=== PATIENT | female | born 1985 | race Caucasian/White ===

== ENCOUNTER 2018-09-29 22:31 | Observation (INO) | payer OTHER ==
[2018-09-29] MEDS ORDERED: KETOROLAC 15 MG/1 ML SDV IM ONE (22:49)
[2018-09-29] MEDS ORDERED: KETOROLAC 30 MG/1 ML SDV ONE (22:50)
--- NOTE | 2018-09-29 22:52 | EDPHY ---
H & P Stated Complaint: cervix pain Time Seen by Provider: 09/29/18 22:42 HPI/ROS: HPI The patient presents with pelvic pain which has been present for the last 2 weeks though became worse this morning and has been persistent ever since. The pain is diffuse, sharp in nature, began to radiate toward her stomach today. She had the pain initially after masturbating 2 weeks ago though it was manageable. Her last menstrual period was on September 21 and was usual for her. She does not have any bleeding or vaginal discharge. She says she has been treating the pain with CBD oil. She has no prior history of similar pain. She has not had a fever.. REVIEW OF SYSTEMS 10 systems were reviewed and negative with the exception of the elements mentioned in the history of present illness. PMHx: Healthy, 1 in her 20s which resulted as a miscarriage at 5 months Soc Hx: No primary care doctor, recently moved from [place], drinks alcohol occasionally PHYSICAL General Appearance: Alert, no distress Eyes: Pupils equal and round no pallor or injection ENT, Mouth: Mucous membranes moist Respiratory: There are no retractions, lungs are clear to auscultation Cardiovascular: Regular rate and rhythm Gastrointestinal: Abdomen is soft and mildly tender in lower quadrants, no masses, bowel sounds normal Pelvic: Cervix appears normal though there is cervical motion tenderness present, there is a small amount of whitish discharge Neurological: A&O, moves all extremities Skin: Warm and dry, no rashes Musculoskeletal: Neck is supple non tender Extremities: symmetrical, full range of motion Psychiatric: Patient is oriented X 3, there is no agitation Source: Patient Exam Limitations: No limitations - Personal History LMP (Females 10-55): 8-14 Days Ago Current Tetanus Diphtheria and Acellular Pertussis (TDAP): Unsure - Medical/Surgical History Hx Asthma: No Hx Chronic Respiratory Disease: No Hx Diabetes: No Hx Cardiac Disease: No Hx Renal Disease: No Hx Cirrhosis: No Hx Alcoholism: No Hx HIV/AIDS: No Hx Splenectomy or Spleen Trauma: No - Social History Smoking Status: Current every day smoker Constitutional: Initial Vital Signs Temperature (C) 36.7 C 09/29/18 22:39 Heart Rate 106 H 09/29/18 22:39 Respiratory Rate 20 09/29/18 22:39 Blood Pressure 162/113 H 09/29/18 22:39 O2 Sat (%) 95 09/29/18 22:39 O2 Delivery Mode Room Air Allergies/Adverse Reactions: No Known Allergies Allergy (Unverified 09/29/18 22:38) Home Medications: Medication Instructions Recorded Acetaminophen [Tylenol ES 500 mg 1,000 mg PO Q8HRS tab 09/30/18 (*)] Ibuprofen [Motrin (*)] 600 mg PO Q6HRS tab 09/30/18 oxyCODONE IR [Oxycodone Ir (*)] 5 - 10 mg PO Q4HRS PRN #25 tab 09/30/18 Medical Decision Making - Diagnostics Imaging Results: Ultrasound pelvis demonstrates complex left adnexal mass concerning for ruptured ectopic with free fluid visualized within the abdomen, discussed with direct radiology Imaging: I viewed and interpreted images myself Differential Diagnosis: This is a 33-year-old sexually active female who presents with 2 weeks of vaginal and lower abdominal pain which became worse today, radiating upwards throughout her abdomen. On exam, she has normal vital signs, she has mild tenderness in her lower abdomen, pelvic exam demonstrates cervical motion tenderness with minimal discharge in normal appearing cervix. In the emergency department, labs were checked, qualitative HCG was positive. Pelvic ultrasound was performed demonstrating heterogeneous structure outside of the uterus, uterus is empty, there is free fluid throughout her abdomen. food science technician showed me the images. I consulted with the patient who is had sexual intercourse over the last several months. She denies any dizziness or lightheadedness. Repeat vital signs are normal. I discussed the case with the OBGYN television picture tube rebuilder Dr. Robledo. He will come and see the patient in the ER. HCG is about 300. Patient's pain is being treated with fentanyl. Differential diagnoses considered in the emergency department include ruptured ectopic, PID, tubo-ovarian abscess, fibroids. The patient was eventually seen by Dr. Ambrose who took the patient directly to the operating room. She remained hemodynamically stable throughout her time in the emergency department. She did require ongoing treatment with pain medication. - Data Points Laboratory Results: Laboratory Results 09/30/18 00:36 09/29/18 23:06 09/30/18 09/30/18 09/30/18 00:43 00:36 00:36 WBC 17.22 10^3/uL H 10^3/uL (3.80-9.50) RBC 3.94 10^6/uL L 10^6/uL (4.18-5.33) Hgb 12.0 g/dL L g/dL (12.6-16.3) POC Hgb 13.3 gm/dL gm/dL (12.6-16.3) Hct 36.2 % L % (38.0-47.0) POC Hct 39 % % (38-47) MCV 91.9 fL fL (81.5-99.8) MCH 30.5 pg pg (27.9-34.1) MCHC 33.1 g/dL g/dL (32.4-36.7) RDW 12.4 % % (11.5-15.2) Plt Count 311 10^3/uL 10^3/uL (150-400) MPV 9.3 fL fL (8.7-11.7) Neut % (Auto) 81.5 % H % (39.3-74.2) Lymph % (Auto) 12.5 % L % (15.0-45.0) [place] % (Auto) 4.4 % L % (4.5-13.0) Eos % (Auto) 0.8 % % (0.6-7.6) Baso % (Auto) 0.5 % % (0.3-1.7) Nucleat RBC Rel Count 0.0 % % (0.0-0.2) Absolute Neuts (auto) 14.03 10^3/uL H 10^3/uL (1.70-6.50) Absolute Lymphs (auto) 2.16 10^3/uL 10^3/uL (1.00-3.00) Absolute Monos (auto) 0.75 10^3/uL 10^3/uL (0.30-0.80) Absolute Eos (auto) 0.13 10^3/uL 10^3/uL (0.03-0.40) Absolute Basos (auto) 0.09 10^3/uL 10^3/uL (0.02-0.10) Absolute Nucleated RBC 0.00 10^3/uL 10^3/uL (0-0.01) Immature Gran % 0.3 % % (0.0-1.1) Immature Gran # 0.06 10^3/uL 10^3/uL (0.00-0.10) POC Sodium 135 mEq/L mEq/L (135-145) Sodium POC Potassium 3.8 mEq/L mEq/L (3.3-5.0) Potassium POC Chloride 100 mEq/L mEq/L (97-110) Chloride Carbon Dioxide Anion Gap POC BUN 16 mg/dL mg/dL (7-23) BUN Creatinine POC Creatinine 0.8 mg/dL mg/dL (0.6-1.0) Estimated GFR Glucose POC Glucose 115 mg/dL H mg/dL (70-100) Calcium Total Bilirubin Conjugated Bilirubin Unconjugated Bilirubin AST ALT Alkaline Phosphatase Total Protein Albumin Lipase Beta HCG, Qual Beta HCG, Quant Specimen Hemolysis Tanja species DNA C.trachomatis RNA (TMA) Gardnerella DNA Probe N.gonorrhoeae RNA (TMA) Trichomonas DNA Probe Patient ABO/Rh O POSITIVE 09/29/18 09/29/18 09/29/18 23:21 23:20 23:20 WBC RBC Hgb POC Hgb Hct POC Hct MCV MCH MCHC RDW Plt Count MPV Neut % (Auto) Lymph % (Auto) [place] % (Auto) Eos % (Auto) Baso % (Auto) Nucleat RBC Rel Count Absolute Neuts (auto) Absolute Lymphs (auto) Absolute Monos (auto) Absolute Eos (auto) Absolute Basos (auto) Absolute Nucleated RBC Immature Gran % Immature Gran # POC Sodium Sodium POC Potassium Potassium POC Chloride Chloride Carbon Dioxide Anion Gap POC BUN BUN Creatinine POC Creatinine Estimated GFR Glucose POC Glucose Calcium Total Bilirubin Conjugated Bilirubin Unconjugated Bilirubin AST ALT Alkaline Phosphatase Total Protein Albumin Lipase Beta HCG, Qual Beta HCG, Quant 298.77 mIU/mL H mIU/mL (0.00-4.83) Specimen Hemolysis Tanja species DNA Pending C.trachomatis RNA (TMA) Pending Gardnerella DNA Probe Pending N.gonorrhoeae RNA (TMA) Pending Trichomonas DNA Probe Pending Patient ABO/Rh 09/29/18 09/29/18 09/29/18 23:06 23:06 23:06 WBC REJ RBC REJ Hgb REJ POC Hgb Hct REJ POC Hct MCV REJ MCH REJ MCHC REJ RDW REJ Plt Count REJ MPV REJ Neut % (Auto) REJ Lymph % (Auto) REJ [place] % (Auto) REJ Eos % (Auto) REJ Baso % (Auto) REJ Nucleat RBC Rel Count REJ Absolute Neuts (auto) REJ Absolute Lymphs (auto) REJ Absolute Monos (auto) REJ Absolute Eos (auto) REJ Absolute Basos (auto) REJ Absolute Nucleated RBC REJ Immature Gran % REJ Immature Gran # REJ POC Sodium Sodium 130 mEq/L L mEq/L (135-145) POC Potassium Potassium 4.8 mEq/L mEq/L (3.5-5.2) POC Chloride Chloride 103 mEq/L mEq/L (97-110) Carbon Dioxide 19 mEq/l L mEq/l (22-31) Anion Gap 8 mEq/L mEq/L (6-14) POC BUN BUN 18 mg/dL mg/dL (7-23) Creatinine 0.7 mg/dL mg/dL (0.6-1.0) POC Creatinine Estimated GFR > 60 Glucose 100 mg/dL mg/dL (70-100) POC Glucose Calcium 8.8 mg/dL mg/dL (8.5-10.4) Total Bilirubin 0.9 mg/dL mg/dL (0.1-1.4) Conjugated Bilirubin 0.9 mg/dL H mg/dL (0.0-0.5) Unconjugated Bilirubin 0.0 mg/dL mg/dL (0.0-1.1) AST 40 IU/L IU/L (14-46) ALT 8 IU/L L IU/L (9-52) Alkaline Phosphatase 57 IU/L IU/L (38-126) Total Protein 7.4 g/dL g/dL (6.3-8.2) Albumin 4.2 g/dL g/dL (3.5-5.0) Lipase 55 IU/L IU/L (23-300) Beta HCG, Qual POSITIVE Beta HCG, Quant Specimen Hemolysis 192 Tanja species DNA C.trachomatis RNA (TMA) Gardnerella DNA Probe N.gonorrhoeae RNA (TMA) Trichomonas DNA Probe Patient ABO/Rh Medications Given: Discontinued Medications Bupivacaine HCl (Sensorcaine 0.5% Vial) Confirm Administered Dose 30 ml .ROUTE .STK-MED ONE Stop: 09/30/18 02:21 Last Admin: 09/30/18 03:44 Dose: 30 ml Epinephrine HCl (Epinephrine) Confirm Administered Dose 1 mg .ROUTE .STK-MED ONE Stop: 09/30/18 02:21 Last Admin: 09/30/18 03:45 Dose: 1 mg Fentanyl (Sublimaze) 50 mcg IVP EDNOW ONE Stop: 09/30/18 00:52 Last Admin: 09/30/18 00:56 Dose: 50 mcg Sodium Chloride (Ns) 1,000 mls @ 0 mls/hr IV EDNOW ONE; Wide Open PRN Reason: Protocol Stop: 09/30/18 00:15 Last Admin: 09/30/18 00:36 Dose: 1,000 mls Ketorolac Tromethamine (Toradol) 30 mg IM EDNOW ONE Stop: 09/29/18 22:50 Last Admin: 09/29/18 22:57 Dose: 30 mg Ketorolac Tromethamine (Toradol) 30 mg IVP ONCE ONE Stop: 09/30/18 04:18 Last Admin: 09/30/18 04:35 Dose: 30 mg Point of Care Test Results: Chemistry 09/30/18 00:43 POC Sodium 135 mEq/L mEq/L (135-145) POC Potassium 3.8 mEq/L mEq/L (3.3-5.0) POC Chloride 100 mEq/L mEq/L (97-110) POC BUN 16 mg/dL mg/dL (7-23) POC Creatinine 0.8 mg/dL mg/dL (0.6-1.0) POC Glucose 115 mg/dL H mg/dL (70-100) ISTAT H&H 09/30/18 00:43 POC Hgb 13.3 gm/dL gm/dL (12.6-16.3) POC Hct 39 % % (38-47) Departure - Departure Disposition: To OP Cath/Surgery Clinical Impression: Ruptured ectopic Condition: Fair
[2018-09-30] MEDS ORDERED: NS 1,000 ML IV ONE (00:14)
[2018-09-30 00:49] LABS: PLATELET COUNT 311 10^3/uL (150-400)
[2018-09-30] MEDS ORDERED: fentaNYL 100 MCG/2 ML INJ IVP ONE (00:51)
[2018-09-30] MEDS ORDERED: HYDROmorphONE/DILAUDID 2 MG/ML INJ IVP ONE (01:29)
[2018-09-30] MEDS ORDERED: HYDROmorphONE/DILAUDID 1 MG/ML INJ ONE (01:30)
[2018-09-30] MEDS ORDERED: EPINEPHrine 1 MG/ML INJ ONE (02:20)
[2018-09-30] MEDS ORDERED: BUPIVACAINE 0.5% 30 ML SDV ONE (02:20)
--- NOTE | 2018-09-30 02:21 | PDGENHP ---
History and Physical - Chief Complaint Acute pelvic pain, suspected ectopic - History of Present Illness 33 yo presented to the ER early this AM with acute pelvic pain, HCG of 300 and US suggesting ruptured ectopic . She has been sexually active without any contraception for many months. H/o SAB "around 20 weeks" > 10 years ago for which she needed a D&C, otherwise no surgeries. Has had a vague lower pelvic pain that was much less than this for the past 2 weeks, but worsened acutely at 2100 last night. No vaginal bleeding. Complains now of generalized abdominal pain that feels occasionally sharp and stingy. She admits to being an everyday drinker - usually ranging from "a few beers" to "a few beers and a few shots." When asked about heavier use she claims "let's just say I've done some bad things to my body". Denies any other recreational drugs, no THC, does smoke 1/2 to 1ppd. History Information - Allergies/Home Medication List Allergies/Adverse Reactions: No Known Allergies Allergy (Unverified 09/29/18 22:38) Home Medications: NK [No Known Home Meds] 09/29/18 [Last Taken Unknown] I have personally reviewed and updated: family history, medical history, social history, surgical history Past Medical History: Alcohol abuse, tobacco abuse, h/o 2nd trimester SAB - Surgical History Additional surgical history: D&C (22 yoa) - Family History Positive for: non-pertinent - Social History Smoking Status: Current every day smoker (1/2 to 1 ppd) Tobacco Use: Cigarettes Alcohol Use: Heavy (Daily - many beers and shots per night) Drug Use: None Review of Systems Review of Systems: ROS: 10pt was reviewed & negative except for what was stated in HPI & below Physical Exam Physical Exam: Appears tired, uncomfortable, occasionally writhing in pain Belly is soft, minimally distended. TTP deep in lower quadrants. Temp Pulse Resp BP Pulse Ox 36.2 C 103 H 16 119/80 93 09/30/18 00:30 09/30/18 00:30 09/30/18 00:30 09/30/18 00:30 09/30/18 00:30 Lab Data & Imaging Review 09/30/18 00:36 09/29/18 23:06 WBC 17.22 10^3/uL (3.80-9.50) H 09/30/18 00:36 RBC 3.94 10^6/uL (4.18-5.33) L 09/30/18 00:36 Hgb 12.0 g/dL (12.6-16.3) L 09/30/18 00:36 POC Hgb 13.3 gm/dL (12.6-16.3) 09/30/18 00:43 Hct 36.2 % (38.0-47.0) L 09/30/18 00:36 POC Hct 39 % (38-47) 09/30/18 00:43 MCV 91.9 fL (81.5-99.8) 09/30/18 00:36 MCH 30.5 pg (27.9-34.1) 09/30/18 00:36 MCHC 33.1 g/dL (32.4-36.7) 09/30/18 00:36 RDW 12.4 % (11.5-15.2) 09/30/18 00:36 Plt Count 311 10^3/uL (150-400) 09/30/18 00:36 MPV 9.3 fL (8.7-11.7) 09/30/18 00:36 Neut % (Auto) 81.5 % (39.3-74.2) H 09/30/18 00:36 Lymph % (Auto) 12.5 % (15.0-45.0) L 09/30/18 00:36 [place] % (Auto) 4.4 % (4.5-13.0) L 09/30/18 00:36 Eos % (Auto) 0.8 % (0.6-7.6) 09/30/18 00:36 Baso % (Auto) 0.5 % (0.3-1.7) 09/30/18 00:36 Nucleat RBC Rel Count 0.0 % (0.0-0.2) 09/30/18 00:36 Absolute Neuts (auto) 14.03 10^3/uL (1.70-6.50) H 09/30/18 00:36 Absolute Lymphs (auto) 2.16 10^3/uL (1.00-3.00) 09/30/18 00:36 Absolute Monos (auto) 0.75 10^3/uL (0.30-0.80) 09/30/18 00:36 Absolute Eos (auto) 0.13 10^3/uL (0.03-0.40) 09/30/18 00:36 Absolute Basos (auto) 0.09 10^3/uL (0.02-0.10) 09/30/18 00:36 Absolute Nucleated RBC 0.00 10^3/uL (0-0.01) 09/30/18 00:36 Immature Gran % 0.3 % (0.0-1.1) 09/30/18 00:36 Immature Gran # 0.06 10^3/uL (0.00-0.10) 09/30/18 00:36 POC Sodium 135 mEq/L (135-145) 09/30/18 00:43 Sodium 130 mEq/L (135-145) L 09/29/18 23:06 POC Potassium 3.8 mEq/L (3.3-5.0) 09/30/18 00:43 Potassium 4.8 mEq/L (3.5-5.2) 09/29/18 23:06 POC Chloride 100 mEq/L (97-110) 09/30/18 00:43 Chloride 103 mEq/L (97-110) 09/29/18 23:06 Carbon Dioxide 19 mEq/l (22-31) L 09/29/18 23:06 Anion Gap 8 mEq/L (6-14) 09/29/18 23:06 POC BUN 16 mg/dL (7-23) 09/30/18 00:43 BUN 18 mg/dL (7-23) 09/29/18 23:06 Creatinine 0.7 mg/dL (0.6-1.0) 09/29/18 23:06 POC Creatinine 0.8 mg/dL (0.6-1.0) 09/30/18 00:43 Estimated GFR > 60 09/29/18 23:06 Glucose 100 mg/dL (70-100) 09/29/18 23:06 POC Glucose 115 mg/dL (70-100) H 09/30/18 00:43 Calcium 8.8 mg/dL (8.5-10.4) 09/29/18 23:06 Total Bilirubin 0.9 mg/dL (0.1-1.4) 09/29/18 23:06 Conjugated Bilirubin 0.9 mg/dL (0.0-0.5) H 09/29/18 23:06 Unconjugated Bilirubin 0.0 mg/dL (0.0-1.1) 09/29/18 23:06 AST 40 IU/L (14-46) 09/29/18 23:06 ALT 8 IU/L (9-52) L 09/29/18 23:06 Alkaline Phosphatase 57 IU/L (38-126) 09/29/18 23:06 Total Protein 7.4 g/dL (6.3-8.2) 09/29/18 23:06 Albumin 4.2 g/dL (3.5-5.0) 09/29/18 23:06 Lipase 55 IU/L (23-300) 09/29/18 23:06 Beta HCG, Qual POSITIVE 09/29/18 23:06 Beta HCG, Quant 298.77 mIU/mL (0.00-4.83) H 09/29/18 23:21 Specimen Hemolysis 192 09/29/18 23:06 Patient ABO/Rh O POSITIVE 09/30/18 00:36 Imaging Review: Final report of US not completed yet - briefly, no IUP, no uterine anomalies. Complex right adnexal mass seemingly adjacent/subjacent to the ovary, generous free fluid in the [place], lower and extending to upper quadrants. Suspicious for ruptured ectopic . Assessment & Plan Assessment: 33 yo presents to the ER with acute pelvic pain - found to have HCG of 300 and US showing likely ruptured ectopic with general complex fluid in the pelvis. Pt seen and evaluated in the ER. Differential discussed - related to her that I did suspect this was an ectopic that was bleeding. Recommended Diagnostic Laparoscopy, evacuation of hemoperitoneum, likely salpingectomy. RBA discussed and consents signed in person here in ER. - Routine preop orders. - No abx indicated. - Will be observation overnight, likely home in the AM. RODRIGO
[2018-09-30] MEDS ORDERED: PROPOFOL 200 MG/20 ML VIAL ONE (02:58)
[2018-09-30] MEDS ORDERED: MIDAZOLAM 2 MG/2 ML VIAL ONE (02:58)
[2018-09-30] MEDS ORDERED: fentaNYL 100 MCG/2 ML INJ ONE ×2 (02:58→04:08)
[2018-09-30] MEDS ORDERED: METOCLOPRAMIDE 10 MG/2 ML VIAL ONE (03:14)
[2018-09-30] MEDS ORDERED: ROCURONIUM 50 MG/5 ML VIAL ONE (03:14)
[2018-09-30] MEDS ORDERED: ONDANSETRON 4 MG/2 ML VIAL ONE (03:14)
--- NOTE | 2018-09-30 03:20 | PDANEPAE ---
ANE Past Medical History - Pulmonary History Hx Oxygen in Use at Home: No - Endocrine History Hx Diabetes: No ANE Review of Systems Review of Systems: ANE Patient History - Allergies Allergies/Adverse Reactions: No Known Allergies Allergy (Unverified 09/29/18 22:38) - Home Medications Home Medications: NK [No Known Home Meds] 09/29/18 [Last Taken Unknown] - Smoking Hx Smoking Status: Current every day smoker (1/2 to 1 ppd) - Alcohol Use Alcohol Use: Heavy (Daily - many beers and shots per night) ANE Labs/Vital Signs - Labs Result Diagrams: 09/30/18 00:36 09/29/18 23:06 - Vital Signs Blood Pressure: 102/62 Heart Rate: 107 Respiratory Rate: 22 O2 Sat (%): 95 Height: 157.48 cm Weight: 68.039 kg ANE Physical Exam - Airway Mallampati Score: Class 2 Mouth exam: poor dentition - ASA Status ASA Status: II, E ANE Anesthesia Plan Anesthesia Plan: general endotracheal anesthesia Urgent/Emergent Case: Tony llanes completed preop but documented later for safe timely pt care
[2018-09-30] MEDS ORDERED: SUGAMMADEX SODIUM 200 MG/2 ML VIAL IVP ONE (04:03)
[2018-09-30] MEDS ORDERED: ONDANSETRON DISINTEGRATING 4 MG TAB PO PRN (04:17)
[2018-09-30] MEDS ORDERED: ONDANSETRON 4 MG/2 ML VIAL IVP PRN (04:17)
[2018-09-30] MEDS ORDERED: KETOROLAC 30 MG/1 ML SDV IVP ONE (04:17)
--- NOTE | 2018-09-30 04:17 | SUROPNOTE ---
[facility] Operative Report - Surgery Date of Operation: 09/30/18 Surgeon: Dorian Ambrose Dairy Hand: None Anesthesiologist: Jorge Faye Anesthesia: GET(General Endotracheal) Pre-op Diagnosis: Pelvic pain, adnexal mass Post-op Diagnosis: Ruptured left ectopic Procedure: Diagnostic laparoscopy, evacuation of hemoperitoneum, left salpingectomy Findings: Abnormal, dilated left fallopian tube w/ ectopic Inf/Abcess present in the surg proc area at time of surgery?: No EBL: 750cc hemoperitoneum, minimal additional surgical EBL Complications: None Specimen(s): Left fallopian tube Technique:
[2018-09-30] MEDS ORDERED: KETOROLAC 30 MG/1 ML SDV ONE (04:23)
[2018-09-30] MEDS ORDERED: oxyCODONE IR 5 MG TAB PO PRN (04:23)
[2018-09-30] MEDS ORDERED: fentaNYL 100 MCG/2 ML INJ IVP PRN (04:25)
[2018-09-30] MEDS ORDERED: LR 500 ML IV PRN (04:25)
[2018-09-30] MEDS ORDERED: PROMETHAZINE HCL 25 MG/ML INJ IVP PRN (04:25)
[2018-09-30] MEDS ORDERED: MEPERIDINE 25 MG/0.5 ML AMP IVP PRN (04:25)
[2018-09-30] MEDS ORDERED: NALOXONE HCL 0.4 MG/ML INJ IVP PRN (04:25)
[2018-09-30] MEDS ORDERED: HYDROCODONE/APAP 5/325 TAB PO PRN (04:25)
--- NOTE | 2018-09-30 04:26 | POSTANESTH ---
Post Anesthetic Evaluation Cardiovascular Status: Normal, Stable Respiratory Status: Normal, Stable Level of Consciousness/Mental Status: Can Participate in Eval Pain Control: Adequate, Prn Tx Ordered Nausea/Vomiting Control: Adequate, Prn Tx Ordered Complications Possibly Related to Anesthesia: None Noted
[2018-09-30] MEDS: ACETAMINOPHEN 500 MG TAB PO SCH ×2 (06:20→13:15)
[2018-09-30 09:14] VITALS: BP 121/70
[2018-09-30] MEDS ORDERED: IBUPROFEN 600 MG TAB PO SCH (10:00)
[2018-09-30 12:47] LABS: GC AMPLIFICATION GENPROBE NEGATIVE (NEGATIVE)
[2018-09-30] MEDS ORDERED: NICOTINE 21 MG/24 HR PATCH TD ONE (13:05)
== END 2018-09-30 14:06 | disposition home or self-care (01) ==
LOC: INTOOBSV 09-30 01:32 → FOB 09-30 04:54
PROVIDERS: ADMIT Obstetrics & Gynecology; ATTEND Obstetrics & Gynecology
DX: O00.90 Unspecified ectopic pregnancy without intrauterine pregnancy (principal); F10.10 Alcohol abuse, uncomplicated; F17.210 Nicotine dependence, cigarettes, uncomplicated; E86.0 Dehydration
CPT/HCPCS: 82435-PO; 82565-PO; 82947-PO; 84132-PO; 84295-PO; 84520-PO; 85014-ER; 96374; G0378; J0171; J1170; J1885; J2250; J2405; J2704; J2765; J3010